=== PATIENT | female | born 1975 | race Caucasian/White ===

== ENCOUNTER 2017-10-30 15:04 | Emergency (ER) | payer MEDICAID ==
[~2017-10-30] VITALS: Ht 160 cm; Wt 100.0 kg
[~2017-10-30 15:04] MED LIST: HYDR-3240 PO
[2017-10-30 15:22] VITALS: BP 160/101
[2017-10-30] MEDS ORDERED: KETOROLAC 30 MG/1 ML ONE (16:41)
[2017-10-30] MEDS ORDERED: METHOCARBAMOL 750 MG TABLET ONE (16:42)
[2017-10-30] MEDS ORDERED: KETOROLAC 30 MG/1 ML IM ONE (17:00)
[2017-10-30] MEDS ORDERED: METHOCARBAMOL 750 MG TABLET PO ONE (17:00)
== END 2017-10-30 16:54 | disposition home or self-care (01) ==
LOC: ED 16:48
DX: M54.42 Lumbago with sciatica, left side (principal); M25.552 Pain in left hip
CPT/HCPCS: 72110; 96372; 99284; J1885